=== PATIENT | female | born 1990 | race American Indian/Alaskan Native ===

== ENCOUNTER 2017-12-11 11:04 | Emergency (ER) | payer MEDICAID ==
[2017-12-11 11:13] VITALS: BMI 35.2
[2017-12-11 11:19] VITALS: RESP 18; TEMP 97.9
--- NOTE | 2017-12-11 11:43 | ED PDOC ---
Arrival/HPI - General Chief Complaint: Female Genitourinary Time Seen by Provider: 12/11/17 11:32 Historian: Patient - History of Present Illness Narrative History of Present Illness (Text): 12/11/17 11:40 pt p/w + intermittent vaginal spotting/bleeding x 6 days; pt just found out 6 days ago that she is also preg with at home preg test; pt has not made an appointment with her cotton farmer at the moment; pt states she also has some lower abd /pelvic cramps, + vaginal spotting at most requires her to change pads ~ twice daily; pt states + vomiting x 2 episodes sparingly; pt states no fever/chills/ sweats, no cp/sob/palpitations, no upper abd pain, no persistent n/v, no numbness/tingling, no urinary/bowel changes, fair appetite; no fall/trauma/sick contact, no travel; pt is here for further eval; pt's without other complaints. LMP: 3 Time/Duration: < week Symptom Onset: Sudden Symptom Course: Unchanged Quality: Cramping Severity Level: Mild Activities at Onset: Rest Context: Home Past Medical History - Provider Review Nursing Documentation Reviewed: Yes - Travel History Have you recently traveled outside [place] w/in the past 3 mons?: No - Past History Past History: No Previous - Infectious Disease Hx of Infectious Diseases: None - Tetanus Immunization Tetanus Immunization: Unknown - Reproductive Menopause: No Currently : Yes - Past Medical History Past Medical History: No Previous - Cardiac Hx Cardiac Disorders: No - Pulmonary Hx Asthma: Yes - Neurological Hx Neurological Disorder: No - HEENT Hx HEENT Disorder: No - Renal Hx Renal Disorder: No - Endocrine/Metabolic Hx Endocrine Disorders: No - Hematological/Oncological Hx Blood Disorders: No - Integumentary Hx Dermatological Disorder: No - Musculoskeletal/Rheumatological Hx Musculoskeletal Disorders: No - Gastrointestinal Hx Gastrointestinal Disorders: No - Genitourinary/Gynecological Hx Genitourinary Disorders: No - Psychiatric Hx Psychophysiologic Disorder: No Hx Substance Use: No Family/Social History - Physician Review Nursing Documentation Reviewed: Yes Family/Social History: No Known Family HX Smoking Status: Never Smoked Hx Alcohol Use: No Hx Substance Use: No Hx Substance Use Treatment: No Allergies/Home Meds Allergies/Adverse Reactions: Allergies No Known Allergies Allergy (Verified 12/11/17 11:13) Review of Systems - Review of Systems Constitutional: Normal Eyes: Normal ENT: Normal Respiratory: Normal Cardiovascular: Normal Gastrointestinal: Other (pelvic cramps, abd pain) Genitourinary Female: Vaginal Bleeding. absent: Vaginal Discharge Musculoskeletal: Normal Skin: Normal Neurological: Normal Endocrine: Normal Hemo/Lymphatic: Normal Psychiatric: Normal Physical Exam Vital Signs Reviewed: Yes Vital Signs Temp Pulse Resp BP Pulse Ox 12/11/17 12:38 86 18 108/69 98 12/11/17 11:15 97.9 F 90 18 110/75 100 Temperature: Afebrile Blood Pressure: Normal Pulse: Regular Respiratory Rate: Normal Appearance: Positive for: Well-Appearing, Non-Toxic, Comfortable, Other (alert/ awake; GCS = 15, oriented x 3, resting in bed, NAD, cooperative) Pain Distress: None Mental Status: Positive for: Alert and Oriented X 3 - Systems Exam Head: Present: Atraumatic, Normocephalic Pupils: Present: PERRL, Other (no nystagmus, no photophobia, sclera anicteric, visual field ) Extroacular Muscles: Present: EOMI Conjunctiva: Present: Normal Ears: Present: Normal Mouth: Present: Moist Mucous Membranes, Normal Teeth Pharnyx: Present: Normal, Other (uvula/tongues are midline, no exudate/lesions, no drooling/stridor) Nose (External): Present: Atraumatic Nose (Internal): Present: Normal Inspection Neck: Present: Normal Range of Motion, Trachea Midline. No: MIDLINE TENDERNESS Respiratory/Chest: Present: Clear to Auscultation, Good Air Exchange, Other ( CTA b/l, no w/r/r). No: Respiratory Distress, Accessory Muscle Use Cardiovascular: Present: Regular Rate and Rhythm, Normal S1, S2, Other (no murmur). No: Murmurs Abdomen: Present: Normal Bowel Sounds, Other (well nourished/slightly obese female, no focal tenderness, no wynne's sign, no mcburney's point tenderness, no masses/rebound/guarding/rigidity) Genitourinary/Pelvic Exam: Present: Other (pt refused exam, will see her cotton farmer for the exam) Back: Present: Normal Inspection, Other (no midline tenderness). No: CVA Tenderness, Midline Tenderness Upper Extremity: Present: Normal Inspection, Normal ROM, NORMAL PULSES, Capillary Refill < 2s Lower Extremity: Present: Normal Inspection, NORMAL PULSES, Normal ROM, Neurovascularly Intact, Capillary Refill < 2 s, Other (+ ambulatory) Neurological: Present: GCS=15, CN II-XII Intact, Speech Normal Skin: Present: Warm, Normal Color, Other (cap refill < 1sec, no ulcerations, no petechiae) Lymphatic: Present: Cervical Adenopathy Psychiatric: Present: Alert, Oriented x 3 Medical Decision Making ED Course and Treatment: 12/11/17 1140 Impression: vaginal bleeding/preg i have consider all the differential diagnosis regarding pt's chief medical complaints/clinical findings, including but are not limited to: vaginal bleeding /preg A/P: vaginal bleeding/preg - labs - us - ua - supportive care - observe/reevaluation 12/11/17 14:00 pt is doing well pt refused pelvic exam and would like her cotton farmer to perform the exam otherwise pt is made aware of her medical results pt is encouraged no heavy weight bearing pt is encouraged fluids pt will f/u as directed pt will be discharged home Re-evaluation Time: 14:08 Reassessment Condition: Re-examined, Improved - Lab Interpretations Lab Results: Lab Results 12/11/17 12:10: Blood Type Confirm A POSITIVE 12/11/17 11:45: Blood Type A POSITIVE, Antibody Screen Negative, BBK History Checked No verified bt 12/11/17 11:45: Urine Color Yellow, Urine Appearance Clear, Urine pH 6.0, Ur Specific [place] 1.025, Urine Protein Trace H, Urine Glucose (UA) Negative, Urine Ketones Negative, Urine Blood Trace-intact H, Urine Nitrate Negative, Urine Bilirubin Negative, Urine Urobilinogen 0.2, Ur Leukocyte Esterase Small H , Urine RBC 1 - 3, Urine WBC 5 - 10, Ur Epithelial Cells 4 - 5, Urine Bacteria Few 12/11/17 11:45: Beta HCG, Quant 5400.10 H I have reviewed the lab results: Yes Interpretation: Abnormal lab values (+UTI; pt is A+) - RAD Interpretation Narrative RAD Interpretations (Text): 12/11/17 13:26 Transvaginal US reviewed by radiologist, shows: UTERUS: Measures 4.7 x 5 x 9.0 cm. Normal in size and appearance. No fibroid or other mass lesion seen. ENDOMETRIUM: Measures 18 mm in diameter. 7.7 mm gestational sac. Out of range for calculation of gestational age. Tiny yolk sac identified. No pole apparent CERVIX: No cervical abnormality identified. RIGHT OVARY: Measures 1.6 x 2 x 2.4 cm. No solid mass. Normal flow. LEFT OVARY: Measures 2 x 2.7 x 3.0 cm. No solid mass. Normal flow. FREE FLUID: Trace free fluid identified in the pelvis/cul de sac. OTHER FINDINGS: None. IMPRESSION: Presumed early intrauterine gestation based on well-formed gestational sac and tiny yolk sac. No pole identified. Radiology Orders: 12/11/17 11:57 TRANSVAGINAL [US] Stat Art Tracer: Radiologist - Medication Orders Current Medication Orders: Discontinued Medications Nitrofurantoin Macrocrystals (Macrobid) 100 mg PO ONCE ONE PRN Reason: Protocol Stop: 12/11/17 13:51 Disposition/Present on Arrival - Present on Arrival Any Indicators Present on Arrival: No History of DVT/PE: No History of Uncontrolled Diabetes: No Urinary Catheter: No History of Decub. Ulcer: No History Surgical Site Infection Following: None - Disposition Have Diagnosis and Disposition been Completed?: Yes Diagnosis: Threatened in first trimester, UTI (urinary tract infection) during Disposition: HOME/ ROUTINE Disposition Time: 14:09 Patient Plan: Discharge Patient Problems: Current Active Problems Problem Status Onset Threatened in first trimester Acute UTI (urinary tract infection) during Acute Condition: STABLE Discharge Instructions (ExitCare): Threatened Miscarriage (DC), Bleeding With (DC), Urinary Tract Infection, Adult (DC) Print Language: HAITIAN Additional Instructions: Make sure to see your doctor in 1-2 days you need to have an cotton farmer doctor as soon as possible DRINK PLENTY OF FLUIDS take your medications as prescribed avoid heavy lifting no sex until your doctor says so RETURN TO ED IF worse pain, cant breath, persistent vomiting, high fever >101- 102 for hours, altered behavior, slurr speech, facial changes, focal weakness ( arm/leg or both), unable to urinate, heavy/persistent bleeding, passing out, chest pain, or other medical emergencies Prescriptions: Nitrofurantoin Macrocrystals [Macrobid] 100 mg PO BID #13 cap No122/Iron/Folic Acid [ Multi Tablet] 1 each PO DAILY #30 tablet Referrals: [facility] [employer] [facility], [Primary Care Provider] - [facility] with [facility] [Outside] - Follow up with primary [facility] [Outside] - [facility] with primary [facility] [Outside] - Follow up with primary Forms: [employer] (Micronesian), WORK NOTE
[2017-12-11 12:14] LABS: URINE BILIRUBIN NEGATIVE (NEGATIVE); URINE BLOOD TRACE-INTACT (NEGATIVE); URINE GLUCOSE (UA) NEGATIVE (NEGATIVE); URINE LEUKOCYTE ESTERASE SMALL Leu/uL (NEGATIVE); URINE PROTEIN TRACE mg/dL (<30 mg/dL); URINE UROBILINOGEN 0.2 E.U./dL (<1 E.U./dL)
[2017-12-11 12:15] LABS: URINE APPEARANCE CLEAR (CLEAR); URINE COLOR YELLOW (YELLOW)
[2017-12-11 12:21] LABS: URINE BACTERIA FEW (NEG)
[2017-12-11 12:39] VITALS: O2SAT 98
--- NOTE | 2017-12-11 13:16 | US ---
HISTORY: bleeding/cramps x 6 days; LMP=10/29 COMPARISON: None available. TECHNIQUE: Transvaginal only. Real -time technique with 2D, duplex and color Doppler FINDINGS: UTERUS: Measures 4.7 x 5 x 9.0 cm. Normal in size and appearance. No fibroid or other mass lesion seen. ENDOMETRIUM: Measures 18 mm in diameter. 7.7 mm gestational sac. Out of range for calculation of gestational age. Tiny yolk sac identified. No pole apparent CERVIX: No cervical abnormality identified. RIGHT OVARY: Measures 1.6 x 2 x 2.4 cm. No solid mass. Normal flow. LEFT OVARY: Measures 2 x 2.7 x 3.0 cm. No solid mass. Normal flow. FREE FLUID: Trace free fluid identified in the pelvis/cul de sac. OTHER FINDINGS: None. IMPRESSION: Presumed early intrauterine gestation based on well-formed gestational sac and tiny yolk sac. No pole identified.
[2017-12-11 14:20] VITALS: BP 110/65; PULSE 79
== END 2017-12-11 14:52 | disposition home or self-care (01) ==
LOC: ED 11:04
DX: O20.0 Threatened abortion (principal); O23.41 Unspecified infection of urinary tract in pregnancy, first trimester